=== PATIENT | female | born 1985 | race Caucasian/White ===

== ENCOUNTER 2017-08-03 14:20 | Outpatient (RCR) | payer OTHER | END 2017-09-02 | LOC: M PT 14:20 | DX: Z51.89 Encounter for other specified aftercare (principal); M54.5 Low back pain | CPT/HCPCS: 97110 ==

== ENCOUNTER 2017-09-05 15:50 | Outpatient (RCR) | payer OTHER | END 2017-10-03 | LOC: M PT 15:50 | DX: Z51.89 Encounter for other specified aftercare (principal); M54.5 Low back pain | CPT/HCPCS: 97010 ==

== ENCOUNTER → 2017-11-29 | Outpatient (REF) | payer OTHER ==
[2017-11-29 20:23] LABS: CHLAMYDIA DNA AMPLIFICATION NEGATIVE (NEGATIVE); GC DNA AMPLIFICATION NEGATIVE (NEGATIVE)
== END ==
LOC: M LAB REF 16:33
DX: N76.0 Acute vaginitis (principal)

== ENCOUNTER 2018-08-22 15:24 | Inpatient (IN) | payer OTHER ==
[2018-08-22] MEDS ORDERED: LR 1,000 ML IV (16:00)
[2018-08-22 16:26] LABS: HEMATOCRIT 37.7 % (36.0-47.0); HEMOGLOBIN 12.7 g/dl (12.0-15.5); MEAN CORPUSCULAR HEMOGLOBIN 29.5 pg (27.0-33.0); MEAN CORPUSCULAR HGB CONC 33.7 g/dl (32.0-36.5); MEAN CORPUSCULAR VOLUME 87.5 fl (80.0-96.0); PLATELET COUNT, AUTOMATED 278 10^3/uL (150-450); RED BLOOD COUNT 4.31 10^6/uL (4.00-5.40); RED CELL DISTRIBUTION WIDTH 12.7 % (11.5-14.5); WHITE BLOOD COUNT 12.9 10^3/uL (4.0-10.0)
[2018-08-22] MEDS ORDERED: OXYTOCIN 30 UNITS IN 0.9% NaCl 500ML IV BAG (J2590) As Ordered (19:42)
[2018-08-22] MEDS ORDERED: FENTANYL 2MCG/ML ROPIVACAINE 0.2% IN 0.9% NACL 100ML IVBAG As Ordered (20:40)
[2018-08-22] MEDS ORDERED: ePHEDrine SULFATE 25 MG/5 ML(5MG/ML) SYRINGE IV (22:15)
[2018-08-22] MEDS ORDERED: EPIDURAL/PCA KEYS XX (22:15)
[2018-08-22] MEDS ORDERED: REFRIGERATOR IV KEYS XX (22:15)
[2018-08-22] MEDS ORDERED: ONDANSETRON 4MG/2ML VIAL (J2405) IV ×2 (22:15→23:45)
[2018-08-22] MEDS ORDERED: LACTATED RINGER'S 1000 ML IV (22:15)
[2018-08-22] MEDS ORDERED: NALOXONE INJ 0.4 MG/1 ML VIAL (J2310) IV (22:15)
[2018-08-22] MEDS ORDERED: diphenhydrAMINE INJ 50MG/ML VIAL (J1200) IV (22:15)
[2018-08-22] MEDS ORDERED: EPIDURAL COMMENT XX (22:15)
[2018-08-22] MEDS ORDERED: FENTANYL/ROPIVACAINE/NACL BAG 100 ML EPIDURAL (22:15)
[2018-08-22] MEDS: OXYTOCIN DRIP 30 UNITS in APPROPRIATE DILUENT 1 EA IV (23:31)
[2018-08-23] MEDS: IBUPROFEN 800 MG TAB PO ×3 (04:27→21:30)
[2018-08-23] MEDS: DIBUCAINE 1% OINTMENT 30GM TOP (04:27)
[2018-08-23] MEDS: MEASLES,MUMPS,RUBELLA VACCINE INJ (MMR-II) (90707) SC (07:09)
[2018-08-23] MEDS: ACETAMINOPHEN TAB 650MG DOSE (2X325MG) PO (07:28)
[2018-08-23] MEDS: DOCUSATE SODIUM 100 MG CAP PO ×2 (07:28→21:30)
[2018-08-23] MEDS: PRENATAL VITAMINS CHEWABLE TABLET PO (07:28)
[2018-08-23 14:02] LABS: FETAL SCREEN PROF. 1 1
[2018-08-23] MEDS: RHOGAM 300 MCG (1500 IU) INJ (J2790) IM (14:21)
[2018-08-24] MEDS: PRENATAL VITAMINS CHEWABLE TABLET PO (07:44)
[2018-08-24] MEDS: DOCUSATE SODIUM 100 MG CAP PO (07:45)
[2018-08-24] MEDS: IBUPROFEN 800 MG TAB PO (07:45)
== END 2018-08-24 12:00 | disposition home or self-care (01) | DRG 807 ==
LOC: M LDI 15:24 → M OBS 08-23 02:10
PROVIDERS: Obstetrics & Gynecology; Pediatrics
PROC: 10E0XZZ Delivery of Products of Conception, External Approach (ICD-10-PCS; principal; 2018-08-22)
PROC: 0HQ9XZZ Repair Perineum Skin, External Approach (ICD-10-PCS; 2018-08-22)
PROC: 10907ZC Drainage of Amniotic Fluid, Therapeutic from Products of Conception, Via Natural or Artificial Opening (ICD-10-PCS; 2018-08-22)
DX: O48.0 Post-term pregnancy (principal); Z37.0 Single live birth; Z3A.40 40 weeks gestation of pregnancy; O34.211 Maternal care for low transverse scar from previous cesarean delivery; O70.0 First degree perineal laceration during delivery

== ENCOUNTER 2019-10-05 23:06 | Emergency (ER) | payer OTHER ==
[~2019-10-05] VITALS: Ht 170.2 cm; Wt 112.3 kg
[~2019-10-05 23:06] MED LIST: COLA100C5 PO; DIBU10OI TOP; IBUP-1114 PO; MAPA500T2 PO; PRENTAB9 PO; VALT500T PO
[2019-10-06 00:21] LABS: BASO % 0.2 % (0.0-1.0); EOS # 0.2 10^3/uL (0.0-0.5); HEMATOCRIT 39.5 % (36.0-47.0); HEMOGLOBIN 13.1 g/dl (12.0-15.5); LYMPH # 2.9 10^3/uL (1.5-5.0); LYMPH % 19.9 % (24.0-44.0); MEAN CORPUSCULAR HEMOGLOBIN 29.5 pg (27.0-33.0); MEAN CORPUSCULAR HGB CONC 33.2 g/dl (32.0-36.5); MONO # 0.8 10^3/uL (0.0-0.8); MONO % 5.8 % (0.0-5.0); NEUTROPHILS # 10.5 10^3/uL (1.5-8.5); NEUTROPHILS % 72.8 % (36.0-66.0); PLATELET COUNT, AUTOMATED 242 10^3/uL (150-450); RED BLOOD COUNT 4.44 10^6/uL (4.00-5.40); WHITE BLOOD COUNT 14.4 10^3/uL (4.0-10.0)
--- NOTE | 2019-10-06 01:18 | REPVR ---
PROCEDURE INFORMATION: Exam: US First Trimester, Transabdominal Exam date and time: 10/06/2019 12:34 AM Age: 34 years old Clinical indication: Lmp or gestational age (in weeks): Lmp 07/08/19; Antepartum complications; Bleeding; ; Additional info: Vaginal bleeding TECHNIQUE: Imaging protocol: Real-time transabdominal obstetrical ultrasound of the maternal pelvis and a first trimester , less than 14 weeks 0 days, with image documentation. COMPARISON: No relevant prior studies available. FINDINGS: Last menstrual period: 07/08/2019 GESTATION: Gestation: There is a single intrauterine gestation. Heart rate: 165 bpm Placenta: Unremarkable. No subchorionic bleed. Amniotic fluid: Amniotic and coelomic fluid are normal for gestational age. BIOMETRY: Estimated gestational age by US: 12 weeks 6 days Estimated gestational age by LMP: 12 weeks 6 days [employer]ump length: 6.46 cm, which is in the 46th percentile for gestational age. Estimated due date by US: 04/13/2020 Estimated due date by LMP: 04/13/2020 MATERNAL: Uterus: Unremarkable. Cervix: The cervix is closed and measures 3.5 cm in length. Right adnexa: The right ovary measures 4.2 cm x 2.5 cm x 4.1 cm and contains a 1.4 cm x 1.9 cm x 1.8 cm corpus luteal cyst. Normal blood flow is demonstrated to the right ovary without evidence for right ovarian torsion. No right adnexal mass is noted. Left adnexa: The left ovary is normal in appearance and measures 3 cm x 2.1 cm x 2.2 cm. Normal blood flow is demonstrated to the left ovary without evidence for left ovarian torsion. No left adnexal mass is noted. Intraperitoneal: No intraperitoneal free fluid is seen from the images obtained. IMPRESSION: Single live intrauterine gestation with an estimated gestational age of 12 weeks 6 days and estimated due date on 04/13/2020. A 2nd trimester obstetrical ultrasound is recommended at 19-20 weeks gestational age for a detailed anatomical survey. Electronically signed by: Lawrence Mercedes On 10/06/2019 01:19:58 AM
[2019-10-06] MEDS ORDERED: RHOGAM 300 MCG (1500 IU) INJ (J2790) IM ONE (02:00)
[2019-10-06 03:57] VITALS: BP 132/78
== END 2019-10-06 04:10 | disposition home or self-care (01) ==
LOC: M ED 23:06
DX: O26.851 Spotting complicating pregnancy, first trimester (principal); O26.891 Other specified pregnancy related conditions, first trimester; R10.2 Pelvic and perineal pain; Z3A.12 12 weeks gestation of pregnancy; Z79.899 Other long term (current) drug therapy
CPT/HCPCS: 76801; 81001; 84702; 85025; 86850; 86900; 86901; 87210; 93976; 96372; 99284; J2790

== ENCOUNTER 2019-10-10 11:10 | Day surgery (SDC) | payer OTHER ==
[~2019-10-10] VITALS: Ht 170.2 cm; Wt 110.5 kg
[2019-10-10] MEDS ORDERED: NS 1,000 ML IV SCH (11:30)
[2019-10-10 11:48] LABS: BASO % 0.2 % (0.0-1.0); EOS # 0.1 10^3/uL (0.0-0.5); EOS % 0.4 % (0.0-3.0); HEMATOCRIT 40.5 % (36.0-47.0); HEMOGLOBIN 13.4 g/dl (12.0-15.5); LYMPH # 1.9 10^3/uL (1.5-5.0); LYMPH % 14.7 % (24.0-44.0); MEAN CORPUSCULAR HEMOGLOBIN 29.1 pg (27.0-33.0); MEAN CORPUSCULAR HGB CONC 33.1 g/dl (32.0-36.5); MEAN CORPUSCULAR VOLUME 87.9 fl (80.0-96.0); MONO % 7.6 % (0.0-5.0); NEUTROPHILS # 9.8 10^3/uL (1.5-8.5); NEUTROPHILS % 76.6 % (36.0-66.0); PLATELET COUNT, AUTOMATED 228 10^3/uL (150-450); RED BLOOD COUNT 4.61 10^6/uL (4.00-5.40); WHITE BLOOD COUNT 12.9 10^3/uL (4.0-10.0)
[2019-10-10] MEDS ORDERED: ACET-897 PO (11:54)
[2019-10-10 12:06] LABS: PROTHROMBIN TIME 12.9 SECONDS (11.8-14.0)
[2019-10-10 12:07] LABS: PARTIAL THROMBOPLASTIN TIME 25.6 SECONDS (25.0-38.4)
[2019-10-10] MEDS ORDERED: KETOROLAC 60 MG/2 ML VIAL (J1885) As Ordered ONE (12:17)
[2019-10-10] MEDS ORDERED: MIDAZOLAM INJ 2 MG/2 ML VIAL (J2250) As Ordered ONE (12:17)
[2019-10-10] MEDS ORDERED: LIDOCAINE 2% INJ 100 MG/5 ML SDV (FOR ANES.) As Ordered ONE (12:17)
[2019-10-10] MEDS ORDERED: fentaNYL 100 MCG/2 ML INJECTION (J3010) As Ordered ONE (12:17)
[2019-10-10] MEDS ORDERED: dexameTHASONE 4 MG/ML 1ML VIAL (J1100) As Ordered ONE (12:17)
[2019-10-10] MEDS ORDERED: propofoL 200 MG/20 ML VIAL As Ordered ONE ×2 (12:19→13:03)
[2019-10-10] MEDS ORDERED: ONDANSETRON 4MG/2ML VIAL (J2405) As Ordered ONE (12:19)
[2019-10-10] MEDS ORDERED: ACETAMINOPHEN 650 MG SUPP As Ordered ONE (12:32)
[2019-10-10 12:41] LABS: BLOOD UREA NITROGEN 6 MG/DL (7-18); CALCIUM LEVEL 8.9 MG/DL (8.5-10.1); CARBON DIOXIDE LEVEL 25 MEQ/L (21-32); CHLORIDE LEVEL 107 MEQ/L (98-107); CREATININE FOR GFR 0.65 MG/DL (0.55-1.30); GLOMERULAR FILTRATION RATE > 60.0 (>60); GLUCOSE, FASTING 69 MG/DL (70-100); HCG, SERUM QUANTITATIVE 65944 MIU/ML; POTASSIUM SERUM 3.9 MEQ/L (3.5-5.1); SODIUM LEVEL 138 MEQ/L (136-145)
[2019-10-10] MEDS ORDERED: KETAMINE HCL 200 MG/20 ML VIAL As Ordered ONE (12:51)
[2019-10-10] MEDS ORDERED: OXYTOCIN INJ 10 UNITS/ML VIAL (J2590) As Ordered ONE (12:58)
[2019-10-10] MEDS ORDERED: fentaNYL 100 MCG/2 ML INJECTION (J3010) IV PRN (14:00)
[2019-10-10] MEDS ORDERED: LR 1,000 ML IV SCH (14:00)
[2019-10-10] MEDS ORDERED: ONDANSETRON 4MG/2ML VIAL (J2405) IV PRN (14:00)
--- NOTE | 2019-10-10 14:06 | HPE ---
DATE OF ADMISSION: 10/10/2019 HISTORY: This lady is a 34-year-old, 3, para 2, last menstrual period (LMP) 07/08/2019, expected date of confinement (EDC) 04/13/2020. She came into the clinic 24 hours ago with spontaneous rupture of membranes documented by the physician at 13 weeks and 1 day. She was counseled regarding premature rupture of membranes, the non viability status of the . She was also counseled regarding fever, bleeding, cramping, and when to call the provider or to come to emergency. PAST HISTORY: She had a section x1. She had a successful vaginal after (). She has had right ankle surgery and wisdom teeth. Her blood type is A negative. She was given RhoGAM when she was in emergency this past week. RPR was negative. Rubella immune. Varicella immune. Her 1-hour glucose was 96. She was admitted through the emergency department (ED). She had a spontaneous delivery of a fetus, probably 13-14 weeks, which she brought in with her and was sent to pathology under separate cover. She was not bleeding. The little cord was still present on the perineum. At this time, there was no bleeding and it was determined that this lady will have a suction curettage. We discussed the risks and benefits of surgery including hemorrhage, infection, perforation, and reoperation. The patient expressed understanding of the complications and the procedure. She elected to go ahead and have the procedure done. Signed the consent form. Her blood pressure was 124/75, respirations were 18, pulse was 86 and temperature was 97.4. Her hemoglobin was 13.4, hematocrit 40.5 and platelets were 228. Her chemistry indicated her electrolytes were within normal limits. Anion gap was 6. BUN and creatinine were within normal limits. GFR was greater than 60. Quant was 65,944. Her coagulation factors, INR, PT and APTT were all within normal limits. Her blood type is A negative. Antibody screen was positive. She had been given RhoGAM 4 days ago when she was in emergency. In summary, we have a patient who spontaneously delivered the fetus at home, came in with a retained placenta, Rh negative, for suction curettage. Anesthesia will be consulted regarding time of the event.
[2019-10-10 14:50] VITALS: BP 131/81
--- NOTE | 2019-10-10 15:06 | RO ---
DATE OF PROCEDURE: 10/10/2019 PREPROCEDURE DIAGNOSIS: Retained placenta at 13 weeks. POSTPROCEDURE DIAGNOSIS: Retained placenta at 13 weeks. OPERATION PROPOSED: Suction curettage. OPERATION PERFORMED: Suction curettage. ANESTHESIA: Conscious sedation. ESTIMATED BLOOD LOSS: Less than 50 mL SURGEON: Tito Chun MD SUPERINTENDENT MECHANICAL: DESCRIPTION OF PROCEDURE: After adequate time-out, prepped and draped in the lithotomy position, bladder drained for 150 mL of clear urine. The patient has a bit of an enterocele and cystocele. Weighted speculum in the vagina, single-tooth tenaculum on a multiparous cervix, sound depth of 10 cm, was already dilated to Earlene 10, curved suction curette applied. Ring forceps were applied and the placenta was completely removed. Curettage of the cavity was done. The uterus was placed in anatomical position, well contracted under Pitocin. The patient is Rh negative, has received RhoGAM in the past but does not require RhoGAM at the present time. The patient was sent to recovery in good condition. Post D and C acetaminophen suppository 1300 mg placed.
[2019-10-10] MEDS ORDERED: KETOROLAC 30 MG/ML VIAL (J1885) IV SCH (19:00)
== END 2019-10-10 14:55 | disposition home or self-care (01) ==
LOC: M ED 11:10 → M SDC 11:11
PROVIDERS: ATTEND Obstetrics & Gynecology
DX: O02.1 Missed abortion (principal)
CPT/HCPCS: 36415; 59821; 80048; 84702; 85025; 85610; 85730; 86850; 86870; 86900; 86901; 88305; 99284; J1100; J1885; J2250; J2405; J2590; J3010